=== PATIENT | male | born 1945 | race Caucasian/White ===

== ENCOUNTER 2017-03-30 16:29 | Emergency (ER) | payer OTHER ==
[~2017-03-30 16:29] MED LIST: CELEBREX400 MG PO; DULERA 200 MCG8.8 GM INH; FLOMAX0.4 MG PO; INDERAL LA80 MG PO; LEVAQUIN500 MG PO; MUCINEX 600MG600 MG PO; PERCOCET 5/3251 TAB PO; PRILOSEC20 MG PO; XANAX1 MG PO
[2017-03-30 17:09] LABS: BASOPHIL 0.3 % (0-2); EOSINOPHIL 3.9 % (0-7); HCT 41.9 % (42.0-52.0); LYMPHOCYTE 29.2 % (15-48); MCH 31.1 pg (25.0-31.0); MCHC 35.8 g/dL (32.0-36.0); MCV 86.9 fL (78.0-100.0); MONOCYTE 12.3 % (0-12); MPV 9.7 fL (6.0-9.5); NEUTROPHIL 54.3 % (41-80); PLT 206 K/uL (150-400); RBC 4.82 M/uL (4.70-6.00); RDW 13.7 % (11.5-14.0); WBC 5.9 K/uL (4.0-10.5)
[2017-03-30 17:30] LABS: ALBUMIN 4.1 g/dL (3.4-4.8); BILIRUBIN - TOTAL 0.9 mg/dL (0.1-1.0); CREATININE 1.5 mg/dL (0.7-1.2); GLOBULIN (CALCULATION) 2.6 g/dL (2.2-4.2); POTASSIUM 4.2 mmol/L (3.5-5.1); TOTAL PROTEIN 6.7 g/dL (6.4-8.3)
[2017-03-30 19:07] LABS: BILIRUBIN NEGATIVE (NEGATIVE); BLOOD NEGATIVE Ery/uL (NEGATIVE); CLARITY CLEAR (CLEAR); COLOR YELLOW (YELLOW); GLUCOSE (U) NORMAL (NORMAL); KETONE (U) NEGATIVE (NEGATIVE); LEUKOCYTES NEGATIVE Leu/uL (NEGATIVE); NITRITE NEGATIVE (NEGATIVE); PROTEIN NEGATIVE (NEGATIVE); UROBILINOGEN 0.2 mg/dL (0.2-1.0); pH 5.5 (5.0-9.0)
== END 2017-03-30 20:09 | disposition home or self-care (01) ==
LOC: FER 16:29
PROVIDERS: Internal Medicine
DX: E86.0 Dehydration (principal); I10 Essential (primary) hypertension; E03.9 Hypothyroidism, unspecified; Z86.14 Personal history of Methicillin resistant Staphylococcus aureus infection
CPT/HCPCS: 36415; 80053; 81003; 85025; 93005

== ENCOUNTER 2021-08-03 14:09 | Emergency (ER) | payer OTHER ==
[~2021-08-03 14:09] MED LIST changes: +ALLERGY RELIEF10 MG PO; +AMBIEN5 MG PO; +AMOXICILLIN875 MG PO; +AZITHROMYCIN250 MG PO; +BRILINTA90 MG PO; +BUMEX1 MG PO; +CEFDINIR300 MG PO; +DOXEPIN HCL100 MG PO; +IMDUR 30MG TABL30 MG PO; +K-DUR20 MEQ PO; +LEVOTHYROXINE75 MCG PO; +LIPITOR40 MG PO; +LISINOPRIL 5 MG5 MG PO; +LISINOPRIL-HCT1 EAC1 PO; +MEDROL 4MG DOSEP4 MG PO; +MELOXICAM15 MG PO; +METFORMIN HCL500 MG PO; +MOBIC7.5 MG PO; +NEURONTIN300 MG PO; +NITROQUIK SL0.4 MG SL; +NORCO 5-325 TA1 EACH PO; +OMEPRAZOLE40 MG PO; +PREDNISONE 20MG20 MG PO; +SINGULAIR10 MG PO; +TAMSULOSIN HCL0.4 MG PO; +TOPROL XL 25MG25 MG PO; +TOPROL XL 50 MG50 MG PO; +VISTARIL25 MG PO; +XANAX0.25 MG PO; -XANAX1 MG PO; +ZESTRIL2.5 MG PO
[2021-08-03] MEDS ORDERED: PREDNISONE 20MG20 MG PO (15:53)
[2021-08-03] MEDS ORDERED: NORCO 5-325 TA1 EACH PO (15:53)
== END 2021-08-03 16:10 | disposition home or self-care (01) ==
LOC: FER 14:09
DX: M50.322 Other cervical disc degeneration at C5-C6 level (principal); M50.323 Other cervical disc degeneration at C6-C7 level
CPT/HCPCS: 72050; 72072

== ENCOUNTER 2021-08-11 10:02 | Emergency (ER) | payer OTHER ==
[2021-08-11] MEDS ORDERED: CYCLOBENZAPRINE10 MG PO (13:12)
[2021-08-11] MEDS ORDERED: MEDROL 4MG DOSEP4 MG PO (13:12)
[2021-08-11] MEDS ORDERED: NORCO 5-325 TA1 EACH PO (13:12)
== END 2021-08-11 13:57 | disposition home or self-care (01) ==
LOC: FER 10:02
DX: M50.30 Other cervical disc degeneration, unspecified cervical region (principal); G89.29 Other chronic pain; E11.9 Type 2 diabetes mellitus without complications; I25.2 Old myocardial infarction
CPT/HCPCS: 99283; J1100

== ENCOUNTER 2021-10-20 09:23 | Emergency (ER) | payer OTHER ==
[~2021-10-20 09:23] MED LIST changes: +CYCLOBENZAPRINE10 MG PO
[2021-10-20 10:58] LABS: BASOPHIL 0.4 % (0-2); EOSINOPHIL 2.5 % (0-7); HCT 40.8 % (42.0-52.0); HGB 12.6 g/dl (13.2-18.0); MCH 26.7 pg (25.0-31.0); MCHC 30.9 g/dL (32.0-36.0); MCV 86.4 fL (78.0-100.0); MONOCYTE 8.7 % (0-12); MPV 10.2 fL (6.0-9.5); NEUTROPHIL 78.9 % (41-80); NRBC 0; PLT 262 K/uL (150-400); RBC 4.72 M/uL (4.70-6.00); RDW 14.8 % (11.5-14.0); WBC 7.7 K/uL (4.0-10.5)
[2021-10-20 11:07] LABS: BILIRUBIN NEGATIVE (NEGATIVE); BLOOD NEGATIVE Ery/uL (NEGATIVE); CLARITY CLEAR (CLEAR); COLOR YELLOW (YELLOW); GLUCOSE (U) NORMAL (NORMAL); INR 1.12 (0.9-1.2); LEUKOCYTES NEGATIVE Leu/uL (NEGATIVE); NITRITE NEGATIVE (NEGATIVE); PROTEIN NEGATIVE (NEGATIVE); PROTHROMBIN TIME 13.8 SECONDS (11.8-13.4); PTT 28.5 SECONDS (24.4-34.7); UROBILINOGEN 0.2 mg/dL (0.2-1.0)
[2021-10-20 11:28] LABS: ALBUMIN 3.7 g/dL (3.4-5.0); BILIRUBIN - TOTAL 1.3 mg/dL (0.2-1.0); BUN/CREAT RATIO (CALC) 18.6 RATIO; CREATININE 1.29 mg/dL (0.67-1.17); GLOBULIN (CALCULATION) 3.5 g/dL; MAGNESIUM 1.8 mg/dL (1.8-2.4); POTASSIUM 3.6 mmol/L (3.5-5.1); TOTAL PROTEIN 7.2 g/dL (6.4-8.2)
[2021-10-20] MEDS ORDERED: NORCO 5-325 TA1 EACH PO (15:49)
[2021-10-20] MEDS ORDERED: MEDROL 4MG DOSEP4 MG PO (15:49)
== END 2021-10-20 16:20 | disposition home or self-care (01) ==
LOC: FER 09:23
PROVIDERS: Emergency Medicine
DX: R10.11 Right upper quadrant pain (principal); R10.31 Right lower quadrant pain; M54.16 Radiculopathy, lumbar region; E11.9 Type 2 diabetes mellitus without complications; I10 Essential (primary) hypertension
CPT/HCPCS: 36415; 80053; 81003; 83690; 83735; 84145; 85025; 85610; 85730; J1170; J2405; J7030